=== PATIENT | female | born 1955 | race Caucasian/White ===

== ENCOUNTER 2022-07-14 10:50 | Emergency (ER) | payer MEDICARE, OTHER ==
[~2022-07-14] VITALS: Ht 165.1 cm; Wt 80.9 kg
[2022-07-14] MEDS ORDERED: COZAAR100 MG PO (11:16)
[2022-07-14] MEDS ORDERED: ALPRAZOLAM0.25 M1 PO (11:16)
[2022-07-14] MEDS ORDERED: HYDROCHLOROTH12.5 M1 PO (11:17)
[2022-07-14] MEDS ORDERED: DILAUDID4 M1 PO (11:18)
[2022-07-14] MEDS ORDERED: NEURONTIN600 M1 PO (11:18)
[2022-07-14 12:26] LABS: HEMATOCRIT 44.2 % (37.0-47.0); HEMOGLOBIN 14.4 g/dL (12.5-16.0); MEAN CELL VOLUME 90 fl (78-100); MEAN CORPUSCULAR HEMOGLOBIN 29 pg (27-31); MEAN CORPUSCULAR HGB CONC 33 g/dL (33-37); MEAN PLATELET VOLUME 9.6 fl (7.4-10.4); PLATELET COUNT 301 K/mm3 (130-400); RED BLOOD COUNT 4.91 M/mm3 (4.10-5.30); RED CELL DISTRIBUTION WIDTH 11.8 % (11.5-14.5); WHITE BLOOD COUNT 13.6 K/mm3 (4.8-10.8)
[2022-07-14 12:36] LABS: ALBUMIN 3.7 g/dL (3.4-4.8)
[2022-07-14 12:36] LABS: URINE WBC 0 /hpf (0-3)
[2022-07-14 12:37] LABS: POTASSIUM 3.6 mmol/L (3.5-5.1); SODIUM 140 mmol/L (136-145)
[2022-07-14 12:39] LABS: GLUCOSE 119 mg/dL (65-105)
[2022-07-14 12:40] LABS: CARBON DIOXIDE 29 mmol/L (23-31)
[2022-07-14 12:41] LABS: TOTAL BILIRUBIN 0.5 mg/dL (0.2-1.2)
[2022-07-14 12:44] LABS: AST-SGOT 17 U/L (5-34)
[2022-07-14 12:45] LABS: MAGNESIUM 1.85 mg/dL (1.60-2.60)
[2022-07-14 12:46] LABS: ALT/SGPT 14 U/L (0-55); LIPASE 24 U/L (8-78)
[2022-07-14 12:53] LABS: BAND 1 % (0-10); LYMPHOCYTE 5 % (20-51); MONOCYTE 14 % (3-10); NEUTROPHILS 80 % (42-75)
[2022-07-14 12:54] LABS: TROPONIN-I < 0.030 ng/mL (<0.030)
[2022-07-14 13:12] LABS: URINE APPEARANCE CLEAR; URINE BILIRUBIN NEGATIVE (NEGATIVE); URINE BLOOD NEGATIVE (NEGATIVE); URINE COLOR YELLOW; URINE GLUCOSE NEGATIVE (NEGATIVE); URINE KETONE 2+ (NEGATIVE); URINE LEUKOCYTE ESTERASE NEGATIVE (NEGATIVE); URINE NITRATE NEGATIVE (NEGATIVE); URINE PROTEIN(semi-quant) TRACE (NEGATIVE); URINE UROBILINOGEN 1 mg/dL (NORMAL)
[2022-07-14 13:13] LABS: URINE MUCUS PRESENT (NOT PRESENT)
[2022-07-14] MEDS ORDERED: ZOFRAN ODT4 MG PO (14:03)
[2022-07-14] MEDS ORDERED: LASIX40 M1 PO (14:03)
[2022-07-14 15:25] VITALS: BP 121/81
== END 2022-07-14 15:19 | disposition home or self-care (01) ==
LOC: ED 10:50
PROVIDERS: Family Medicine
DX: R18.8 Other ascites (principal); C24.0 Malignant neoplasm of extrahepatic bile duct; F41.9 Anxiety disorder, unspecified
CPT/HCPCS: J1940; J2060; J2405; J2765; J7030; Q9967